=== PATIENT | female | born 1970 | race Caucasian/White ===

== ENCOUNTER 2017-03-10 19:27 | Emergency (ER) | payer BC, OTHER ==
[2017-03-10 19:35] VITALS: BP 155/88; PULSE 78; TEMP 98.1; BMI 20.5
--- NOTE | 2017-03-10 20:37 | PDOC ---
History of Present Illness - General History Source: Patient Exam Limitations: No Limitations - History of Present Illness Initial Comments: 03/10/17 20:47 The patient is a 46 year old female, with no significant past medical history, who presents to the emergency department with chest pain for the past 2 weeks. She describes her chest pain as ranging from mild to moderate, with radiation to the left side. She notes that the pain is exacerbated when she takes a deep breath and attempts to stand up. She denies any pain when touching the mid sternal area. She also reports a mild headache associated with her chief complaint. She states that she called her PMD who advised her to come to the ED for evaluation. The patient denies shortness of breath, and dizziness. Denies fever, chills, nausea, vomit, diarrhea and constipation. Denies dysuria, frequency, urgency and hematuria. Family history: HTN and CA Allergies: None Past surgical history: None reported Social history: No alcohol, tobacco or drug use reported <Arik Hightower - Last Filed: 03/10/17 20:45> <Usha Peña - Last Filed: 03/11/17 04:51> - General Chief Complaint: Pain, Acute Stated Complaint: CHEST PAIN ON AND OFF X 1 MONTH Time Seen by Provider: 03/10/17 19:32 Past History <Arik Hightower - Last Filed: 03/10/17 20:45> - Past Medical History Anemia: No Asthma: No Cancer: No Cardiac Disorders: No CVA: No COPD: No CHF: No Dementia: No Diabetes: No GI Disorders: No Disorders: No HTN: No Hypercholesterolemia: No Liver Disease: No Suicide Attempt (Hx): No Seizures: No Thyroid Disease: No - Psycho/Social/Smoking Cessation Hx Anxiety: No Suicidal Ideation: No Smoking History: Never smoked Have you smoked in the past 12 months: No Information on smoking cessation initiated: No Hx Alcohol Use: No Drug/Substance Use Hx: No Substance Use Type: None Hx Substance Use Treatment: No <Usha Peña - Last Filed: 03/11/17 04:51> - Past Medical History Allergies/Adverse Reactions: Allergies Allergy/AdvReac Type Severity Reaction Status Date / Time No Known Allergies Allergy Verified 03/10/17 19:29 Home Medications: Ambulatory Orders Diclofenac Sodium [Voltaren -] 75 mg PO BID PRN #14 tablet. 03/10/17 Review of Systems - Review of Systems Able to Perform ROS?: Yes Comments:: 03/10/17 20:46 GENERAL/CONSTITUTIONAL: No fever or chills. No weakness. HEAD, EYES, EARS, NOSE AND THROAT: No change in vision. No ear pain or discharge. No sore throat. CARDIOVASCULAR: (+) Chest pain. No shortness of breath RESPIRATORY: No cough, wheezing, or hemoptysis. GASTROINTESTINAL: No nausea, vomiting, diarrhea or constipation. GENITOURINARY: No dysuria, frequency, or change in urination. MUSCULOSKELETAL: No joint or muscle swelling or pain. No neck or back pain. SKIN: No rash NEUROLOGIC: (+) Headache. No vertigo, loss of consciousness, or change in strength/sensation. ENDOCRINE: No increased thirst. No abnormal weight change HEMATOLOGIC/LYMPHATIC: No anemia, easy bleeding, or history of blood clots. ALLERGIC/IMMUNOLOGIC: No hives or skin allergy. <Arik Hightower - Last Filed: 03/10/17 20:45> *Physical Exam - Vital Signs Last Vital Signs Temp Pulse Resp BP Pulse Ox 98.1 F 78 16 155/88 100 03/10/17 19:30 03/10/17 19:30 03/10/17 19:30 03/10/17 19:30 03/10/17 19:30 - Physical Exam Comments: 03/10/17 20:46 GENERAL: Awake, alert, and fully oriented, in no acute distress HEAD: No signs of trauma, normocephalic, atraumatic EYES: PERRLA, EOMI, sclera anicteric, conjunctiva clear ENT: Auricles normal inspection, hearing grossly normal, nares patent, oropharynx clear without exudates. Moist mucosa NECK: Normal ROM, supple, no lymphadenopathy, JVD, or masses LUNGS: No distress, speaks full sentences, clear to auscultation bilaterally HEART: Regular rate and rhythm, normal S1 and S2, no murmurs, rubs or gallops, peripheral pulses normal and equal bilaterally. ABDOMEN: Soft, nontender, normoactive bowel sounds. No guarding, no rebound. No masses EXTREMITIES: Normal inspection, Normal range of motion, no edema. No clubbing or cyanosis. NEUROLOGICAL: Cranial nerves II through XII grossly intact. Normal speech, normal gait, no focal sensorimotor deficits SKIN: Warm, Dry, normal turgor, no rashes or lesions noted. <Arik Hightower - Last Filed: 03/10/17 20:45> - Vital Signs Last Vital Signs Temp Pulse Resp BP Pulse Ox 98.1 F 78 16 155/88 100 03/10/17 19:30 03/10/17 19:30 03/10/17 19:30 03/10/17 19:30 03/10/17 19:30 <Usha Peña - Last Filed: 03/11/17 04:51> ED Treatment Course - LABORATORY CBC & Chemistry Diagram: 03/10/17 20:45 03/10/17 20:45 <Usha Peña - Last Filed: 03/11/17 04:51> Medical Decision Making - Medical Decision Making Documentation has been prepared under my direction and personally reviewed by me in its entirety. I attest that this documented accurately reflects all work, treatment, procedures and medical decision making performed by me. As noted above, this 46-year-old woman with no significant risk factors for coronary artery disease presents with a 2 week history of intermittent chest pain. Pain appears to be worsened by certain movements of her back and arms. She has no significant associated symptoms with the pain. Exam is unremarkable. Twelve-lead electrocardiogram shows normal sinus rhythm at 68 bpm; intervals, axis and waveforms are all normal without evidence of acute ST or T-wave abnormalities. CBC/chemistry profile with cardiac enzymes evaluated. All laboratory values are within normal limits . Results discussed with the patient. Since patient has not use nonsteroidal anti-inflammatory medications since the onset of pain, she asked for prescription strength anti-inflammatory. Prescription for diclofenac 75 mg to be taken out to twice a day transmitted to her pharmacy. Patient should follow-up with her general doctor within the next 3-4 days. Meanwhile, she should return to the ER if she has persistent severe pain or experiences shortness of breath/nausea/vomiting <Usha Peña - Last Filed: 03/11/17 04:51> *DC/Admit/Observation/Transfer - Attestations Scribe Attestion: 03/10/17 20:46 Documentation prepared by Arik Hightower, acting as medical chemist for Usha Peña MD <KatjaArik - Last Filed: 03/10/17 20:45> <Usha Peña - Last Filed: 03/11/17 04:51> Diagnosis at time of Disposition: Atypical chest pain - Discharge Dispostion Disposition: HOME Condition at time of disposition: Stable - Prescriptions Prescriptions: Diclofenac Sodium [Voltaren -] 75 mg PO BID PRN #14 tablet.dr ADKINS Reason: Pain - Patient Instructions Printed Discharge Instructions: DI for Atypical Chest Pain Additional Instructions: Diclofenac 75 mg twice a day as needed for pain (take with food) Drink plenty of water Call your general medical doctor tomorrow to make an appointment within the next 3-4 days Return to emergency room if you have persistent, severe pain
[2017-03-10 21:03] LABS: BASOPHIL 2.5 % (0-2.0); EOSINOPHIL 0.9 % (0-4.5); MCH 30.3 pg (25.7-33.7); MEAN CELL VOLUME 89.2 fl (80-96); MEAN PLT VOLUME 8.6 fl (7.5-11.1); NEUTROPHILS 53.4 % (42.8-82.8); PLATELET COUNT 247 K/MM3 (134-434); WHITE BLOOD COUNT 8.2 K/mm3 (4.0-10.8)
[2017-03-10 21:18] LABS: CPK(DFH) 98 IU/L (26-140)
[2017-03-10 21:19] LABS: ALBUMIN 4.1 g/dl (3.5-5.0); ALK PHOS 56 U/L (32-92); ANION GAP 7 (8-16); BILIRUBIN,TOTAL 1.3 mg/dl (0.2-1.0); CALCIUM 9.4 mg/dl (8.4-10.2); CO2 25 mmol/L (22-28); CREATININE 0.8 mg/dl (0.6-1.3); GLUCOSE,RANDOM 88 mg/dl (74-106); SGOT/AST 20 U/L (10-42); SGPT/ALT 18 U/L (10-40); TOT PROT 7.4 g/dl (6.4-8.3)
[2017-03-10 21:27] LABS: COCKROFT - GAULT NT
[2017-03-10 21:30] LABS: TROPONIN I (DFP) < 0.03 ng/ml (0.03-0.50)
--- NOTE | 2017-03-12 14:41 | EKG ---
Test Reason : Blood Pressure : / mmHG Vent. Rate : 068 BPM Atrial Rate : 068 BPM P-R Int : 146 ms QRS Dur : 084 ms QT Int : 394 ms P-R-T Axes : 034 078 058 degrees QTc Int : 418 ms SINUS RHYTHM RSR' OR QR PATTERN IN V1 SUGGESTS RIGHT VENTRICULAR CONDUCTION DELAY NO PREVIOUS ECGS AVAILABLE Confirmed by STUART REEVES MD ([id number]) on 03/12/2017 2:41:34 PM Referred By: JOSE MARIA Confirmed By:STUART REEVES MD
== END 2017-03-10 22:29 | disposition home or self-care (01) ==
LOC: FER 19:27
DX: R07.89 Other chest pain (principal)
CPT/HCPCS: 36415; 71020-TC; 80053; 82550; 84484; 85025; 93005; 99281-25